=== PATIENT | female | born 1975 | race Two or more races ===

== ENCOUNTER 2019-06-26 10:59 | Emergency (ER) | payer BC, OTHER ==
[2019-06-26 11:10] VITALS: TEMP 98.2; BMI 24.0
--- NOTE | 2019-06-26 12:17 | PDOC ---
History of Present Illness - General Chief Complaint: Chest Pain Stated Complaint: CHEST PAIN Time Seen by Provider: 06/26/19 11:41 - History of Present Illness Initial Comments: 06/26/19 12:15 This is a 43 year old female with no significant PMH. She presents tot he ER with complaints of intermittent spinal back pain associated with substernal chest pain for the past 7-8 days. She states that it started suddenly, is sharp in quality, constant in nature but with varying degrees of intensity, being 9/ 10 at its worst. It is aggravated by lying down and turning from side to side. She also endorses 2 days of diarrhea (4 episodes per day, brown, no blood) that ended 2 days ago, intermittent dizziness for the past 2 weeks, and headaches + numbness at the tip of her tongue for the past 4 months. She denies fevers, chills, SOB, coughs, palpitations, nausea, vomiting, diarrhea, constipation, abdominal pain, hematuria, polyuria, or dysuria. She is not on any medication at home, and denies any recent illnesses or sick contacts. She has a strong family history of cardiac dosease, her brother had an [place] in his early 40s, and numerous family memebers had MIs in their 50s and 60s. She works as a service cashier, does not smoke, consumes alcohol a few times a month, and denies any drug use. Past History - Past Medical History Allergies/Adverse Reactions: Allergies Allergy/AdvReac Type Severity Reaction Status Date / Time No Known Allergies Allergy Verified 06/26/19 11:10 COPD: No - Psycho Social/Smoking Cessation Hx Smoking History: Never smoked Hx Alcohol Use: Yes Drug/Substance Use Hx: No Review of Systems - Review of Systems Comments:: 06/26/19 12:24 Constitutional: No fevers, chills, weakness BIOINFORMATICS SCIENTIST: Headaches, paresthesia, dizziness, no visual changes, motor weakness, sensory deficits Respiratory: No SOB, cough, wheezing CVS: Chest pain, no palpitations, light headedness GI: No abdominal pain, nausea, vomiting, diarrhea, constipation BEHZAD: No dysuria, hematuria, polyruia MSK: Back pain, no calf pain, tenderness, joint pain *Physical Exam - Vital Signs Last Vital Signs Temp Pulse Resp BP Pulse Ox 98.2 F 65 16 107/77 98 06/26/19 11:04 10/18/19 11:04 06/26/19 11:04 06/26/19 11:04 06/26/19 11:04 - Physical Exam Comments: 06/26/19 12:26 General: Young female lying in bed, AOx3, pleasant, responsive, cooperative Oropharynx: Normal oral mucosa, no lesions noted Eyes: Normal sclera, JEREMY, EOM intact Lungs: B/L Clear Heart: Regular rate, regular rhythm, no murmurs rubs or gallops appreciated Abdomen: Mild right sided CVA tenderness, Soft, non-tender, non-distended, normoactive bowel sounds, no rebound tenderness Neuro: Motor 5/5 upper and 5/5 lower extremities B/L, sensations intact, CN II- XII intact, no tremors in hands, arms, legs Extremities: Warm extremities, 2+ pulses B/L, no pitting edema MSK: Mild substernal as well as thoracic spinal tenderness to palpation ED Treatment Course - LABORATORY CBC & Chemistry Diagram: 06/26/19 12:45 06/26/19 14:13 Medical Decision Making - Medical Decision Making 06/26/19 14:36 - Very atypical pattern, will r/o PE vs ACS (unlikely, but very strong family hx ) vs muscular etiology - CBC/CMP - UA due to mild CVA tenderness on physical examination - EKG Trops - d Dimer - Lipase - CXR - IV Tylenol 06/26/19 16:21 - CXR normal, d Dimer negative, Trops negative - Reports improvement of pain after receiving IV Tylenol - Likely muscular, patient educated on importance of stretching - Will D/C Discharge - Discharge Information Problems reviewed: Yes Clinical Impression/Diagnosis: Muscle strain of upper back - Admission No - Follow up/Referral Referrals: Carlyn Cooper MD [Primary Care Provider] - - Patient Discharge Instructions Additional Instructions: You came to the ER with complaints of pain in your back and chest. Your blood tests and chest X Ray shows that you do not need any emergency treatment. We believe your pain is likely due to muscle strain in your back. You should do upp back stretching exercises to warm up your muscles. You can do that by standing upright, and use your right hand to touch your left knee, and then use your left hand to touch your right knee. Medications: For pain relief, you may alternate the following medications: - Please take Ibuprofen 200mg twice if you feel pain, no more than 8 pills in one day. - Please take Tylenol 650mg, no more than 4 times a day. Follow-up: - Please follow up with your primary care physician within 1 week. Ask your doctor if a referral for physical therapy may benefit you. Additional information: Please return to the ER if your symptoms worsen. - Post Discharge Activity
[2019-06-26] MEDS ORDERED: ACETAMINOPHEN 1000 MG/100 ML VIAL (NON FORMULARY) IVPB ONE (12:40)
[2019-06-26] MEDS ORDERED: ACETAMINOPHEN INJECTION 100 ML IVPB ONE (13:12)
[2019-06-26 13:22] LABS: BASO % 1.4 % (0-2.0); EOS % 2.5 % (0-4.5); HEMATOCRIT 33.8 % (32.4-45.2); HEMOGLOBIN 11.1 GM/dL (10.7-15.3); LYMPH % 36.3 % (8-40); MCH 27.3 pg (25.7-33.7); MCHC 32.8 g/dl (32.0-36.0); MEAN CELL VOLUME 83.1 fl (80-96); MEAN PLT VOLUME 8.9 fl (7.5-11.1); MONO % 6.4 % (3.8-10.2); NEUT % 53.4 % (42.8-82.8); PLATELET COUNT 255 K/MM3 (134-434); RBC 4.06 M/mm3 (3.60-5.2); RDW 14.5 % (11.6-15.6); WHITE BLOOD COUNT 4.9 K/mm3 (4.0-10.0)
[2019-06-26 13:26] LABS: EPI CELLS 2.4 /HPF (0-5/HPF); HYALINE CASTS 0 /lpf (0-8); PH,URINE 5.5 (5.0-8.0); URINE APPEARANCE CLEAR; URINE BACTERIA 62.3 /hpf (NEGATIVE); URINE BILIRUBIN NEGATIVE (NEGATIVE); URINE COLOR YELLOW; URINE GLUCOSE (UA) NEGATIVE (NEGATIVE); URINE KETONE NEGATIVE (NEGATIVE); URINE LEUK ESTERASE NEGATIVE (NEGATIVE); URINE NITRITE NEGATIVE (NEGATIVE); URINE PROTEIN NEGATIVE (NEGATIVE); URINE RBC 7 /hpf (0-4); URINE UROBILINOGEN 0.2 mg/dL (0.2-1.0); URINE WBC 5 /hpf (0-5)
--- NOTE | 2019-06-26 14:55 | PDOC ---
Documentation entered by Ramon Mix SCRIBE, acting as scribe for Sam Hodge MD. Sam Hodge MD: This documentation has been prepared by the Dominguez lawson Daniel, SCRIBE, under my direction and personally reviewed by me in its entirety. I confirm that the documentation accurately reflects all work, treatment, procedures, and medical decision making performed by me. Attending Attestation - Resident Resident Name: CosmehenryVishal - ED Attending Attestation I have performed the following: I have examined & evaluated the patient, The case was reviewed & discussed with the resident, I agree w/resident's findings & plan, Exceptions are as noted - HPI HPI: 06/26/19 12:38 The patient is a 43 year old female with no past medical history here today for evaluation of chest and back pain. The patient reports that her back pain began 7-8 days ago and describes it as constant, sharp, fluctuates between a 4/10 and a 9/10, worse with lying down, twisting side to side, and sometimes deep breaths , and radiates from her mid back to her chest. Patient denies any trauma to her chest or back. Patient denies fever, chills. Denies shortness of breath. Denies nausea, vomiting, abdominal pain. Allergies: NKA - Physicial Exam PE: 06/26/19 13:55 "GENERAL: Awake, alert, and fully oriented, in no acute distress. HEAD: No signs of trauma EYES: PERRLA, EOMI, sclera anicteric, conjunctiva clear ENT: Auricles normal inspection, hearing grossly normal, nares patent, oropharynx clear without exudates. Moist mucosa NECK: Nontender, no stepoffs, Normal ROM, supple, no lymphadenopathy, JVD, or masses LUNGS: Breath sounds equal, clear to auscultation bilaterally. No wheezes, and no crackles HEART: Regular rate and rhythm, normal S1 and S2, no murmurs, rubs or gallops ABDOMEN: Soft, nontender, normoactive bowel sounds. No guarding, no rebound. No masses EXTREMITIES: Normal range of motion, no edema. No clubbing or cyanosis. No cords, erythema, or tenderness NEUROLOGICAL: Cranial nerves II through XII intact. 5/5 strength and sensation in all extremities, Normal speech, normal gait, normal cerebellar function SKIN: Warm, Dry, normal turgor, no rashes or lesions noted. BACK: + L paraspinal thoracic TTP, no midline TTP - Medical Decision Making 06/26/19 13:55 43 F with back pain radiating to her chest that is worse with movement. Suspect MSK pain. Pt with normal EKG, no signs of ischemia. Given pleuritic nature of pain, will r/o PE. Low suspicion for dissection given normal vitals, normal distal pulses. - Labs, trop, ddimer - CXR - Tylenol 06/26/19 16:35 Labs wnl Trop and dimer negative Pt is well appearing, with normal vitals. Clinically stable for DC at this time. I discussed the physical exam findings, ancillary test results and final diagnoses with the patient. I answered all of the patient's questions. The patient was satisfied with the care received and felt comfortable with the discharge plan and treatment plan. The patient agrees to follow up with the primary care physician within 24-72 hours.
[2019-06-26 14:59] LABS: ALBUMIN 3.6 g/dl (3.4-5.0); ALK PHOS 66 U/L (45-117); ANION GAP 6 MMOL/L (8-16); BILIRUBIN,TOTAL 0.5 mg/dL (0.2-1); BLOOD UREA NITROGEN 16.8 mg/dL (7-18); CALCIUM 8.8 mg/dL (8.5-10.1); CHLORIDE 106 mmol/L (98-107); CO2 29 mmol/L (21-32); CREATININE 0.7 mg/dL (0.55-1.3); GLUCOSE,RANDOM 94 mg/dL (74-106); POTASSIUM 3.6 mmol/L (3.5-5.1); SGOT/AST 17 U/L (15-37); SGPT/ALT 20 U/L (13-61); SODIUM 141 mmol/L (136-145); TOT PROT 7.4 g/dl (6.4-8.2)
[2019-06-26 16:56] VITALS: BP 116/79; PULSE 66
--- NOTE | 2019-06-27 20:23 | EKG ---
Test Reason : Blood Pressure : / mmHG Vent. Rate : 075 BPM Atrial Rate : 075 BPM P-R Int : 158 ms QRS Dur : 082 ms QT Int : 410 ms P-R-T Axes : 017 048 031 degrees QTc Int : 457 ms NORMAL SINUS RHYTHM NORMAL ECG NO PREVIOUS ECGS AVAILABLE Confirmed by MD SHARRI, ADOLFO ([id number]) on 06/27/2019 8:22:54 PM Referred By: Confirmed By:ADOLFO HARRELL MD
== END 2019-06-26 16:56 | disposition home or self-care (01) ==
LOC: JER 10:59
PROC: 3E0337Z Introduction of Electrolytic and Water Balance Substance into Peripheral Vein, Percutaneous Approach (ICD-10-PCS; principal; 2019-06-26)
DX: S29.012A Strain of muscle and tendon of back wall of thorax, initial encounter (principal); X58.XXXA Exposure to other specified factors, initial encounter; Y93.89 Activity, other specified; Y92.89 Other specified places as the place of occurrence of the external cause
CPT/HCPCS: 36415; 71046-TC-FY; 80053; 81003; 84484; 84703; 85025; 85379; 93005; 93010; 96374; 99283-25; J0131

== ENCOUNTER 2021-10-11 11:25 | Day surgery (SDC) | payer OTHER ==
[2021-10-11] MEDS ORDERED: FERRIC CARBOXYMALTOSE 750 MG in SODIUM CHLORIDE 250 ML IVPB ONE (12:00)
[2021-10-11 12:11] VITALS: TEMP 97.8
[2021-10-11 13:24] VITALS: BP 106/62; PULSE 72
== END 2021-10-11 13:15 | disposition home or self-care (01) ==
LOC: FINFUSION 11:25 → FM/S 11:28 → FINFUSION 13:15
PROVIDERS: ATTEND Family Medicine
PROC: 3E033GC Introduction of Other Therapeutic Substance into Peripheral Vein, Percutaneous Approach (ICD-10-PCS; principal; 2021-10-11)
DX: D50.9 Iron deficiency anemia, unspecified (principal)
CPT/HCPCS: 81025; 96365; J1439

== ENCOUNTER 2021-10-18 11:30 | Day surgery (SDC) | payer OTHER ==
[2021-10-18] MEDS ORDERED: FERRIC CARBOXYMALTOSE 750 MG in SODIUM CHLORIDE 250 ML IVPB ONE (12:30)
[2021-10-18 13:15] VITALS: BP 105/69; PULSE 77; TEMP 98.3
== END 2021-10-18 14:00 | disposition home or self-care (01) ==
LOC: FINFUSION 11:30 → FM/S 11:38 → FINFUSION 14:00
PROVIDERS: ATTEND Family Medicine
PROC: 3E033GC Introduction of Other Therapeutic Substance into Peripheral Vein, Percutaneous Approach (ICD-10-PCS; principal; 2021-10-18)
DX: D50.9 Iron deficiency anemia, unspecified (principal)
CPT/HCPCS: 81025; 96365; J1439

== ENCOUNTER 2024-02-07 06:42 | Day surgery (SDC) | payer OTHER ==
[2024-01-13 11:24] VITALS: BMI 25.5
[2024-02-07] MEDS ORDERED: CEFAZOLIN SODIUM 2 GM in DEXTROSE 5%-WATER 100 ML IVPB ONE (07:30)
[2024-02-07] MEDS ORDERED: MIDAZOLAM HCL 2 MG/2 ML SINGLE DOSE VIAL ONE (08:11)
[2024-02-07] MEDS ORDERED: DEXAMETHASONE SOD PHOSPHATE 10 MG/1 ML VIAL ONE (08:12)
[2024-02-07] MEDS ORDERED: FENTANYL CITRATE/PF 50 MCG/ML VIAL ONE (08:12)
[2024-02-07] MEDS ORDERED: ROPIVACAINE HCL/PF 100 MG/20 ML VIAL ONE (08:13)
[2024-02-07] MEDS ORDERED: PROPOFOL 40 ML ONE (08:29)
[2024-02-07] MEDS ORDERED: DEXAMETHASONE SOD PHOSPHATE 4 MG/1 ML VIAL ONE (08:30)
[2024-02-07] MEDS ORDERED: ceFAZolin SODIUM 1 GM VIAL ONE (08:30)
[2024-02-07] MEDS ORDERED: ONDANSETRON 4 MG/2 ML VIAL ONE (08:30)
[2024-02-07] MEDS ORDERED: BUPIVACAINE HCL/EPINEPHRINE/PF 30 ML VIAL IJ ONE (09:21)
[2024-02-07] MEDS ORDERED: ONDANSETRON 4 MG/2 ML VIAL IVPUSH PRN (10:58)
[2024-02-07] MEDS ORDERED: oxyCODONE HCL 5 MG TABLET PO PRN (10:58)
[2024-02-07] MEDS ORDERED: ACETAMINOPHEN 500 MG TABLET (FP) PO ONE (11:00)
[2024-02-07] MEDS ORDERED: LACTATED RINGERS SOLUTION 1,000 ML IV SCH (11:00)
[2024-02-07 12:24] VITALS: RESP 16; TEMP 97.1
[2024-02-10 13:26] VITALS: BP 128/82; PULSE 84
== END 2024-02-07 12:15 | disposition home or self-care (01) ==
LOC: FASUSAT 06:42
PROVIDERS: ATTEND Orthopaedic Surgery
PROC: 0RBJ4ZZ Excision of Right Shoulder Joint, Percutaneous Endoscopic Approach (ICD-10-PCS; principal; 2024-02-07 09:36)
PROC: 0LS34ZZ Reposition Right Upper Arm Tendon, Percutaneous Endoscopic Approach (ICD-10-PCS; 2024-02-07 09:36)
DX: S46.011D Strain of muscle(s) and tendon(s) of the rotator cuff of right shoulder, subsequent encounter (principal); M75.21 Bicipital tendinitis, right shoulder; M75.51 Bursitis of right shoulder; M65.811 Other synovitis and tenosynovitis, right shoulder; S43.431D Superior glenoid labrum lesion of right shoulder, subsequent encounter; X58.XXXD Exposure to other specified factors, subsequent encounter
CPT/HCPCS: 81025; 88304-TC; 94760; C1713; J1100

== ENCOUNTER 2024-04-17 11:23 | Day surgery (SDC) | payer OTHER ==
[2024-04-17] MEDS: IRON SUCROSE INJECTION 200 MG in SODIUM CHLORIDE 100 ML IVPB ONE (11:58)
[2024-04-17 13:04] VITALS: BP 118/82; PULSE 68; RESP 16; TEMP 97.7
== END 2024-04-17 13:06 | disposition home or self-care (01) ==
LOC: FINFUSION 11:23 → FM/S 11:28 → FINFUSION 13:06
PROVIDERS: ATTEND Family Medicine
PROC: 3E033GC Introduction of Other Therapeutic Substance into Peripheral Vein, Percutaneous Approach (ICD-10-PCS; principal; 2024-04-17)
DX: D50.9 Iron deficiency anemia, unspecified (principal)
CPT/HCPCS: 96365; J1756

== ENCOUNTER 2024-04-24 11:30 | Day surgery (SDC) | payer OTHER ==
[2024-04-24] MEDS ORDERED: IRON SUCROSE COMPLEX 200 MG in SODIUM CHLORIDE 100 ML IVPB ONE (11:45)
[2024-04-24] MEDS: IRON SUCROSE INJECTION 200 MG in SODIUM CHLORIDE 100 ML IVPB ONE (11:53)
[2024-04-24 13:59] VITALS: BP 123/76; PULSE 72; RESP 16; TEMP 98.6
== END 2024-04-24 14:00 | disposition home or self-care (01) ==
LOC: FINFUSION 11:30 → FM/S 11:31 → FINFUSION 14:00
PROVIDERS: ATTEND Family Medicine
PROC: 3E033GC Introduction of Other Therapeutic Substance into Peripheral Vein, Percutaneous Approach (ICD-10-PCS; principal; 2024-04-24)
DX: D50.9 Iron deficiency anemia, unspecified (principal)
CPT/HCPCS: 96365; J1756